=== PATIENT | female | born 1960 ===

== ENCOUNTER → 2019-03-13 | Outpatient (REF) | payer OTHER | LOC: M LAB LCGH 16:14 | PROVIDERS: ATTEND Surgery | DX: Z12.11 Encounter for screening for malignant neoplasm of colon (principal); Z80.0 Family history of malignant neoplasm of digestive organs ==

== ENCOUNTER → 2019-11-24 | Outpatient (REF) | payer OTHER | LOC: M LAB LCGH 13:45 | PROVIDERS: ATTEND Physician Assistant | DX: Z12.4 Encounter for screening for malignant neoplasm of cervix (principal); N95.2 Postmenopausal atrophic vaginitis ==